=== PATIENT | female | born 1975 | race African-American/Black ===

== ENCOUNTER 2017-05-11 19:00 | Emergency (ER) | payer OTHER ==
[~2017-05-11] VITALS: Ht 162.6 cm; Wt 121.4 kg
[~2017-05-11 19:00] MED LIST: ENDOCET 5-3251 EACH PO; FLEXERIL10 MG PO; HYDROCHLOROTHIA25 MG PO; IRON325 MG PO; METOCLOPRAM5 MG/1 M1 PO; MOBIC15 MG PO; MOTRIN800 MG PO; MUCINEX D ER T1 EACH PO; NAPROSYN500 MG PO; PREDNISONE20 MG PO; PROVENTIL HFA6.7 GM IH; ROBITUSSIN AC,T10 ML PO; TESSALON PERLE100 MG PO; VITAMIN D400 UNI1 PO
[2017-05-11] MEDS ORDERED: TRIBENZOR 40-51 EAC4 PO (20:49)
[2017-05-11] MEDS ORDERED: FLEXERIL10 MG PO (20:49)
[2017-05-11] MEDS ORDERED: JANUVIA100 MG PO (20:49)
[2017-05-11 21:15] VITALS: BP 184/125
== END 2017-05-11 21:35 | disposition home or self-care (01) ==
LOC: EME 19:00
DX: S16.1XXA Strain of muscle, fascia and tendon at neck level, initial encounter (principal); I10 Essential (primary) hypertension; D64.9 Anemia, unspecified
CPT/HCPCS: 99281; 99284; J1885

== ENCOUNTER 2017-10-29 19:45 | Emergency (ER) | payer OTHER ==
[~2017-10-29] VITALS: Ht 162.6 cm; Wt 122.2 kg
[~2017-10-29 19:45] MED LIST changes: +JANUVIA100 MG PO; +TRIBENZOR 40-51 EAC4 PO
[2017-10-29 20:17] LABS: HEMATOCRIT 42.6 % (36.0-46.0); HEMOGLOBIN 14.4 G/DL (11.9-15.5); MCH 29.5 PG (29.0-34.0); MCHC 33.8 G/DL (30.0-36.0); MCV 87.3 FL (83-99); PLATELET COUNT 287 K/uL (156-360); RBC DIS.WIDTH-CV 14.1 % (11.8-14.6); RBC DIS.WIDTH-SD 44.9 % (39-53); RED BLOOD COUNT 4.88 M/uL (3.80-5.20); WHITE BLOOD COUNT 7.9 K/uL (4.1-10.2)
[2017-10-29 20:29] LABS: CHLORIDE 99 mEq/L (99-109); POTASSIUM 3.4 mEq/L (3.7-5.4); SODIUM 136 mEq/L (136-147)
[2017-10-29 20:31] LABS: GLUCOSE 274 mg/dL (70-99)
[2017-10-29 20:34] LABS: CREATININE 0.9 mg/dL (0.6-1.3); GFR ESTIMATE (CALCULATED) > 59 mL/min/
[2017-10-29 20:35] LABS: UREA NITROGEN (BUN) 11 mg/dL (9-23)
[2017-10-29 20:42] LABS: TROP-I INTERPRETATION NEGATIVE; TROPONIN-I 0.01 ng/mL (0.0-0.30)
[2017-10-29] MEDS ORDERED: TESSALON PERLE100 MG PO (23:11)
[2017-10-29] MEDS ORDERED: VENTOLIN HFA18 GM IH (23:17)
[2017-10-30 00:27] VITALS: BP 158/106
== END 2017-10-30 00:29 | disposition home or self-care (01) ==
LOC: EME 19:45
DX: J20.9 Acute bronchitis, unspecified (principal); I10 Essential (primary) hypertension; Z88.0 Allergy status to penicillin; Z88.6 Allergy status to analgesic agent; Z88.5 Allergy status to narcotic agent
CPT/HCPCS: 71046; 80048; 84484; 85027; 93005; 94640; 99281; 99285